=== PATIENT | female | born 1980 | race Caucasian/White ===

== ENCOUNTER 2018-10-06 12:22 | Emergency (ER) | payer OTHER ==
[~2018-10-06] VITALS: Ht 154.9 cm; Wt 63.5 kg
== END 2018-10-06 13:14 | disposition home or self-care (01) ==
LOC: ER 12:22
DX: K52.9 Noninfective gastroenteritis and colitis, unspecified (principal); K80.20 Calculus of gallbladder without cholecystitis without obstruction

== ENCOUNTER 2020-03-12 12:12 | Emergency (ER) | payer OTHER ==
[~2020-03-12] VITALS: Ht 154.9 cm; Wt 62.6 kg
[2020-03-12] MEDS ORDERED: CIPRO500 MG PO (18:16)
[2020-03-12] MEDS ORDERED: PEPCID AC20 MG PO (18:16)
[2020-03-12] MEDS ORDERED: INTESTINEX680 M1 PO (18:16)
[2020-03-12] MEDS ORDERED: KETO10TA2 PO (18:16)
[2020-03-12] MEDS ORDERED: FLAGYL500MG PO (18:16)
== END 2020-03-12 21:24 | disposition home or self-care (01) ==
LOC: ER 12:12
DX: K59.09 Other constipation (principal); K62.89 Other specified diseases of anus and rectum; R10.2 Pelvic and perineal pain; Z03.818 Encounter for observation for suspected exposure to other biological agents ruled out
CPT/HCPCS: 74177; Q9965